=== PATIENT | male | born 1955 | race Caucasian/White ===

== ENCOUNTER 2019-11-04 11:04 | Day surgery (SDC) | payer MEDICARE, BC ==
[2019-11-04] MEDS ORDERED: BUPIVACAINE 0.5 % PF 150 MG/30 ML VIAL ONE (12:43)
[2019-11-04] MEDS ORDERED: methylPREDNISolone ACETATE 80 MG/ML VIAL ONE (12:44)
[2019-11-04] MEDS ORDERED: LIDOCAINE HCL/MPF 1% 30 ML VIAL IJ ONE (12:44)
[2019-11-04] MEDS ORDERED: FENTANYL PF 100MCG/2ML AMPUL ONE (12:50)
[2019-11-04] MEDS ORDERED: MIDAZOLAM HCL 2 MG/2ML VIAL ONE (12:50)
== END 2019-11-04 14:36 | disposition home or self-care (01) ==
LOC: DS 11:04
PROVIDERS: ATTEND Specialist
DX: M51.16 Intervertebral disc disorders with radiculopathy, lumbar region (principal); I10 Essential (primary) hypertension; E66.3 Overweight; Z88.2 Allergy status to sulfonamides; Z98.890 Other specified postprocedural states; Z79.899 Other long term (current) drug therapy; Z68.29 Body mass index [BMI] 29.0-29.9, adult
CPT/HCPCS: 64483; 72100; A6402; J1040; J2250; J3010; J3490 ×2; J0690; J2704